=== PATIENT | female | born 1980 | race Caucasian/White ===

== ENCOUNTER 2018-12-10 02:30 | Inpatient (IN) | payer OTHER ==
[~2018-12-10] VITALS: Ht 152.4 cm; Wt 62.4 kg
[2018-12-10] VITALS (12 sets, daily range): BP systolic 101–115; BP diastolic 57–70; PULSE 83–108; RESP 18–22; Ht 152.4 cm; Wt 62.4 kg
[2018-12-10] MEDS ORDERED: ALBUTEROL/IPRATROPIUM (NEB) 3 ML AMP HHN PRN (04:00)
[2018-12-10] MEDS ORDERED: NACL 0.9% 3 ML SYG IV SCH (04:00)
[2018-12-10] MEDS ORDERED: HYDROCODONE/APAP (5/325) TAB PO PRN (04:00)
[2018-12-10] MEDS: HYDROCODONE/APAP (5/325) TAB PO PRN (04:10)
[2018-12-10] MEDS: SOD CHLORIDE 0.9% 1,000 ML IV SCH ×3 (04:10→23:47)
[2018-12-10] MEDS: morphine 4 MG/ML VIAL IV PRN ×4 (05:21→21:53)
[2018-12-10] MEDS: CEFTRIAXONE 1 GM/50 ML (PMX) 50 ML IVPB SCH ×2 (05:41→16:47)
--- NOTE | 2018-12-10 07:19 | HP ---
Date/Time of Note Date/Time of Note DATE: 12/10/18 TIME: 07:13 Assessment/Plan VTE Prophylaxis Pharmacological prophylaxis: heparin Lines/Catheters IV Catheter Type (from Nrs): Saline Lock Urinary Cath still in place: No Assessment/Plan Assessment/Plan 1. Syncope: Most likely secondary to orthostatic hypotension -Patient may have been dehydrated -will however check a 2D echo -Given reported headache, may consider head CT even though headache is likely from her migraine -Check troponin 2. Sepsis, as evidenced by fever of 102 and tachycardia at the outside facility: Influenza was negative. Chest x-ray without acute findings -UA, urine culture and blood culture -Empiric antibiotic and IV fluid 3. History of migraine headache: Pain meds as needed 4. Normocytic anemia: Check for iron deficiency -Patient benefits from outpatient pelvic/vaginal ultrasound to evaluate for fibroid Result Diagram: 12/10/18 0515 12/10/18 0515 Results 24hrs Laboratory Tests Test 12/10/18 05:15 White Blood Count 8.9 Red Blood Count 4.03 L Hemoglobin 10.9 L Hematocrit 34.6 L Mean Corpuscular Volume 85.9 Mean Corpuscular Hemoglobin 27.0 L Mean Corpuscular Hemoglobin Concent 31.5 L Red Cell Distribution Width 14.6 H Platelet Count 171 Mean Platelet Volume 10.4 Immature Granulocytes % 0.600 H Neutrophils % 90.2 H Lymphocytes % 6.0 L Monocytes % 3.1 Eosinophils % 0.0 Basophils % 0.1 Nucleated Red Blood Cells % 0.0 Immature Granulocytes # 0.050 H Neutrophils # 8.0 H Lymphocytes # 0.5 L Monocytes # 0.3 Eosinophils # 0.0 Basophils # 0.0 Nucleated Red Blood Cells # 0.0 Sodium Level 138 Potassium Level 4.0 Chloride Level 105 Carbon Dioxide Level 21 Anion Gap 12 Blood Urea Nitrogen 6 L Creatinine 0.59 Est Glomerular Filtrat Rate mL/min > 60 Glucose Level 85 Hemoglobin A1c 5.5 Calcium Level 8.3 L Magnesium Level 1.7 Total Bilirubin 0.0 L Direct Bilirubin 0.00 Indirect Bilirubin 0.0 Aspartate Amino Transf (AST/SGOT) 18 Alanine Aminotransferase (ALT/SGPT) 19 Alkaline Phosphatase 51 Creatine Kinase 79 Creatine Kinase Index 0.3 Creatinine Kinase MB (Mass) < 0.22 Troponin I < 0.012 Total Protein 6.4 Albumin 3.5 Globulin 2.90 Albumin/Globulin Ratio 1.20 Triglycerides Level 61 Cholesterol Level 143 LDL Cholesterol, Calculated 83 HDL Cholesterol 48 Cholesterol/HDL Ratio 2.9 Thyroid Stimulating Hormone (TSH) 0.478 HPI/ROS Admit Date/Time Admit Date/Time Dec 10, 2018 at 03:04 Hx of Present Illness This is a 38-year-old female with a history of migraine headache who presented on outside hospital complaining of fever, cough and flulike symptoms. She was stabilized and was about to be discharged. She was given morphine for headache. When she got out of her chair, she felt dizzy and fell. She was unconscious briefly. She felt some pain in her left cheek and right shoulder. Systolic blood pressure at that time was 53. She was given some fluid and repeat BP measurement shows a systolic blood pressure in the 60s. She was given a total of 2 L of NS and blood pressure was stabilized in the 100s. Per outside ER physician, EKG shows T wave inversion, QT prolongation and T waves. Denied chest pain or shortness of breath. Patient is accompanied by her who also provided history. Denied similar symptoms in the past. PMH/Family/Social Past Medical History Medications Current Medications Sodium Chloride 1,000 ml @ 100 mls/hr Q10H IV Last administered on 12/10/18at 04:10; Admin Dose 100 MLS/HR; Start 12/10/18 at 03:47; Stop 12/11/18 at 08:00 IV Flush (NS 3 ml) 3 ml PER PROTOCOL IV ; Start 12/10/18 at 04:00 Ondansetron HCl (Zofran Inj) 4 mg Q6H PRN IV NAUSEA/VOMITING; Start 12/10/18 at 04:00 Aspirin (Aspirin) 81 mg DAILY PO ; Start 12/10/18 at 09:00 Acetaminophen (Tylenol Tab) 650 mg Q6H PRN PO .PAIN 1-3 OR TEMP; Start 12/10/18 at 04:00 Acetaminophen/ Hydrocodone Bitart ([place] (5/325)) 1 tab Q6H PRN PO .PAIN 4-6; Start 12/10/18 at 04:00 Acetaminophen/ Hydrocodone Bitart ([place] (5/325)) 2 tab Q6H PRN PO .PAIN 7-10 Last administered on 12/10/18at 04:10; Admin Dose 2 TAB; Start 12/10/18 at 04:00 Albuterol/ Ipratropium (Duoneb) 3 ml Q2H RESP THERAPY PRN HHN SHORTNESS OF BREATH; Start 12/10/18 at 04:00 Ceftriaxone Sodium 50 ml @ 100 mls/hr Q12H IVPB Last administered on 12/10/18at 05:41; Admin Dose 100 MLS/HR; Start 12/10/18 at 05:30 Azithromycin 250 ml @ 250 mls/hr DAILY IVPB ; Start 12/10/18 at 09:00 Morphine Sulfate (morphine) 3 mg Q4H PRN IV SEVERE PAIN LEVEL 7-10 Last administered on 12/10/18at 05:21; Admin Dose 3 MG; Start 12/10/18 at 05:30 Coded Allergies: No Known Allergies (Verified Allergy, Unknown, 12/10/18) Social History Smoking Status: Unknown if ever smoked Exam/Review of Systems Vital Signs Vitals Vital Signs Date Temp Pulse Resp B/P (MAP) Pulse Ox O2 O2 Flow FiO2 Time Delivery Rate 12/10/18 94 04:00 12/10/18 Nasal 2.0 03:48 Cannula 12/10/18 99.9 22 115/57 95 03:20 (76) Intake and Output 12/09/18 12/09/18 12/10/18 1515:00 23:00 07:00 IntakeIntake Total 300 ml BalanceBalance 300 ml Exam Exam Past Medical History: see hpi Past Surgical History Past Surgical Hx: other (see hpi) Family History Significant Family History: no pertinent family hx Social History Alcohol Use: other Smoking Status: Unknown if ever smoked Drug Use: other Medications Exam Eyes: PERRL ENMT: mucosa pink and moist Respiratory: normal air movement Cardiovascular: nl pulses Gastrointestinal: soft Extremities: normal pulses AILYN RUIZ MD Dec 10, 2018 07:19
[2018-12-10] MEDS: ONDANSETRON 4 MG INJ IV PRN (08:40)
[2018-12-10] MEDS: ACETAMINOPHEN 325 MG TAB PO PRN ×2 (08:43→16:48)
[2018-12-10] MEDS: ASPIRIN 81 MG TAB PO SCH (08:43)
[2018-12-10] MEDS: AZITHROMYCIN 500MG/NS (PMX) 250 ML IVPB SCH (08:53)
--- NOTE | 2018-12-10 11:06 | PN ---
Date/Time of Note Date/Time of Note DATE: 12/10/18 TIME: 11:03 Assessment/Plan VTE Prophylaxis Pharmacological prophylaxis: LMWH Lines/Catheters [facility] Saline Lock Urinary Cath still in place: No Assessment/Plan Hospital Course 1. Syncope likely secondary to orthostatic hypotension and viral syndrome Continue IV fluids Follow-up in echo 2. Sepsis, as evidenced by fever of 102 and tachycardia at the outside facility: Influenza was negative. Chest x-ray without acute findings UA is negative Empiric antibiotic and IV fluid Patient with malaise and muscle pain likely secondary to viral syndrome 3. History of migraine headache Pain meds as needed 4. Normocytic anemia: Check for iron deficiency TIBC is normal Prophylaxis: Lovenox Result Diagram: 12/10/18 0515 12/10/18 0515 Results 24hrs Laboratory Tests Test 12/10/18 05:10 12/10/18 05:15 12/10/18 09:12 Iron Level 21 L Total Iron Binding Capacity 332 Percent Iron Saturation 6 L Ferritin 29.1 White Blood Count 8.9 Red Blood Count 4.03 L Hemoglobin 10.9 L Hematocrit 34.6 L Mean Corpuscular Volume 85.9 Mean Corpuscular Hemoglobin 27.0 L Mean Corpuscular Hemoglobin Concent 31.5 L Red Cell Distribution Width 14.6 H Platelet Count 171 Mean Platelet Volume 10.4 Immature Granulocytes % 0.600 H Neutrophils % 90.2 H Lymphocytes % 6.0 L Monocytes % 3.1 Eosinophils % 0.0 Basophils % 0.1 Nucleated Red Blood Cells % 0.0 Immature Granulocytes # 0.050 H Neutrophils # 8.0 H Lymphocytes # 0.5 L Monocytes # 0.3 Eosinophils # 0.0 Basophils # 0.0 Nucleated Red Blood Cells # 0.0 Sodium Level 138 Potassium Level 4.0 Chloride Level 105 Carbon Dioxide Level 21 Anion Gap 12 Blood Urea Nitrogen 6 L Creatinine 0.59 Est Glomerular Filtrat Rate mL/min > 60 Glucose Level 85 Hemoglobin A1c 5.5 Calcium Level 8.3 L Magnesium Level 1.7 Total Bilirubin 0.0 L Direct Bilirubin 0.00 Indirect Bilirubin 0.0 Aspartate Amino Transf (AST/SGOT) 18 Alanine Aminotransferase (ALT/SGPT) 19 Alkaline Phosphatase 51 Creatine Kinase 79 Creatine Kinase Index 0.3 Creatinine Kinase MB (Mass) < 0.22 Troponin I < 0.012 Total Protein 6.4 Albumin 3.5 Globulin 2.90 Albumin/Globulin Ratio 1.20 Triglycerides Level 61 Cholesterol Level 143 LDL Cholesterol, Calculated 83 HDL Cholesterol 48 Cholesterol/HDL Ratio 2.9 Thyroid Stimulating Hormone (TSH) 0.478 Urine Color YELLOW Urine Clarity CLEAR Urine pH 5.0 Urine Specific [place] 1.020 Urine Ketones 2+ H Urine Nitrite NEGATIVE Urine Bilirubin NEGATIVE Urine Urobilinogen NEGATIVE Urine Leukocyte Esterase NEGATIVE Urine Microscopic RBC 1 Urine Microscopic WBC 2 Urine Squamous Epithelial Cells FEW Urine Bacteria FEW A Urine Mucus FEW A Urine Hemoglobin 2+ H Urine Glucose NEGATIVE Urine Total Protein NEGATIVE Subjective 24 Hr Interval Summary Musculoskeletal: bone/joint pain Exam/Review of Systems Exam Vitals Vital Signs Date Temp Pulse Resp B/P (MAP) Pulse Ox O2 O2 Flow FiO2 Time Delivery Rate 12/10/18 Nasal 2.0 08:53 Cannula 12/10/18 87 08:19 12/10/18 98.4 18 101/57 95 07:29 (72) Intake and Output 12/09/18 12/09/18 12/10/18 1414:59 22:59 06:59 IntakeIntake Total 300 ml BalanceBalance 300 ml Constitutional: alert, oriented Respiratory: clear to auscultation Cardiovascular: regular rate and rhythm Gastrointestinal: soft; No distended Musculoskeletal: nl extremities to inspection Results Results 24hrs Laboratory Tests Test 12/10/18 05:10 12/10/18 05:15 12/10/18 09:12 Iron Level 21 L Total Iron Binding Capacity 332 Percent Iron Saturation 6 L Ferritin 29.1 White Blood Count 8.9 Red Blood Count 4.03 L Hemoglobin 10.9 L Hematocrit 34.6 L Mean Corpuscular Volume 85.9 Mean Corpuscular Hemoglobin 27.0 L Mean Corpuscular Hemoglobin Concent 31.5 L Red Cell Distribution Width 14.6 H Platelet Count 171 Mean Platelet Volume 10.4 Immature Granulocytes % 0.600 H Neutrophils % 90.2 H Lymphocytes % 6.0 L Monocytes % 3.1 Eosinophils % 0.0 Basophils % 0.1 Nucleated Red Blood Cells % 0.0 Immature Granulocytes # 0.050 H Neutrophils # 8.0 H Lymphocytes # 0.5 L Monocytes # 0.3 Eosinophils # 0.0 Basophils # 0.0 Nucleated Red Blood Cells # 0.0 Sodium Level 138 Potassium Level 4.0 Chloride Level 105 Carbon Dioxide Level 21 Anion Gap 12 Blood Urea Nitrogen 6 L Creatinine 0.59 Est Glomerular Filtrat Rate mL/min > 60 Glucose Level 85 Hemoglobin A1c 5.5 Calcium Level 8.3 L Magnesium Level 1.7 Total Bilirubin 0.0 L Direct Bilirubin 0.00 Indirect Bilirubin 0.0 Aspartate Amino Transf (AST/SGOT) 18 Alanine Aminotransferase (ALT/SGPT) 19 Alkaline Phosphatase 51 Creatine Kinase 79 Creatine Kinase Index 0.3 Creatinine Kinase MB (Mass) < 0.22 Troponin I < 0.012 Total Protein 6.4 Albumin 3.5 Globulin 2.90 Albumin/Globulin Ratio 1.20 Triglycerides Level 61 Cholesterol Level 143 LDL Cholesterol, Calculated 83 HDL Cholesterol 48 Cholesterol/HDL Ratio 2.9 Thyroid Stimulating Hormone (TSH) 0.478 Urine Color YELLOW Urine Clarity CLEAR Urine pH 5.0 Urine Specific [place] 1.020 Urine Ketones 2+ H Urine Nitrite NEGATIVE Urine Bilirubin NEGATIVE Urine Urobilinogen NEGATIVE Urine Leukocyte Esterase NEGATIVE Urine Microscopic RBC 1 Urine Microscopic WBC 2 Urine Squamous Epithelial Cells FEW Urine Bacteria FEW A Urine Mucus FEW A Urine Hemoglobin 2+ H Urine Glucose NEGATIVE Urine Total Protein NEGATIVE Medications Medication Current Medications Sodium Chloride 1,000 ml @ 100 mls/hr Q10H IV Last administered on 12/10/18at 04:10; Admin Dose 100 MLS/HR; Start 12/10/18 at 03:47; Stop 12/11/18 at 08:00 IV Flush (NS 3 ml) 3 ml PER PROTOCOL IV ; Start 12/10/18 at 04:00 Ondansetron HCl (Zofran Inj) 4 mg Q6H PRN IV NAUSEA/VOMITING Last administered on 12/10/18at 08:40; Admin Dose 4 MG; Start 12/10/18 at 04:00 Aspirin (Aspirin) 81 mg DAILY PO Last administered on 12/10/18at 08:43; Admin Dos e 81 MG; Start 12/10/18 at 09:00 Acetaminophen (Tylenol Tab) 650 mg Q6H PRN PO .PAIN 1-3 OR TEMP Last administered on 12/10/18at 08:43; Admin Dose 650 MG; Start 12/10/18 at 04:00 Acetaminophen/ Hydrocodone Bitart ([place] (5/325)) 1 tab Q6H PRN PO .PAIN 4-6; Start 12/10/18 at 04:00 Acetaminophen/ Hydrocodone Bitart ([place] (5/325)) 2 tab Q6H PRN PO .PAIN 7-10 Last administered on 12/10/18 04:10; Admin Dose 2 TAB; Start 12/10/18 at 04:00 Albuterol/ Ipratropium (Duoneb) 3 ml Q2H RESP THERAPY PRN HHN SHORTNESS OF BREATH; Start 12/10/18 at 04:00 Ceftriaxone Sodium 50 ml @ 100 mls/hr Q12H IVPB Last administered on 12/10/18 05:41; Admin Dose 100 MLS/HR; Start 12/10/18 at 05:30 Azithromycin 250 ml @ 250 mls/hr DAILY IVPB Last administered on 12/10/18 08:53; Admin Dose 250 MLS/HR; Start 12/10/18 at 09:00 Morphine Sulfate (morphine) 3 mg Q4H PRN IV SEVERE PAIN LEVEL 7-10 Last administered on 12/10/18 09:44; Admin Dose 3 MG; Start 12/10/18 at 05:30 GREY WHITE Dec 10, 2018 11:06
[2018-12-10] MEDS: ENOXAPARIN 40 MG/0.4 ML SYG SC SCH (12:34)
--- NOTE | 2018-12-10 15:30 | RADRPT ---
Echocardiogram Report Patient Name: Rupesh BARROSnt ID: [id number] : 1980 (38y 5m)Study Date: 12/10/2018 11:04:42 AM Gender: FAccession #: [id number] Tech: [facility] Location: Ref.Physician: AILYN RUIZ Height(Cm): 152 BSA: 1.71Weight(Kg): 68.9 Quality: GoodAccount #: Procedures: Echocardiographic Report: Transthoracic echocardiogram with complete 2D, M-Mode, and doppler examination. Indications: Syncope. Measurements: 2D/M Mode Doppler Measurement Value Normal Range Measurement Value Normal Range LVIDd 2D 4.4 [ 3.8 - 5.2 ] cm AV Peak Stalin 1.5 [ 100.0 - 170.0 ] cm/se c LVIDs 2D 2.8 [ 2.2 - 3.5 ] cm AV Peak PG 9.0 [ 2.0 - 9.0 ] mmHg LVPWd 2D 0.6 [ 0.6 - 0.9 ] cm LVOT Peak Stalin 0.9 [ 70.0 - 110.0 ] cm/sec IVSd 2D 0.6 [ 0.6 - 0.9 ] cm LVOT Peak PG 3.0 [ 2.0 - 6.0 ] mmHg AoR Diam 2D 2.6 [ 2.3 - 3.1 ] cm MV E Peak Stalin 0.8 [ 60.0 - 130.0 ] cm/sec EDV 2D 89.1 [ 46.0 - 106.0 ] ml MV A Peak Stalin 0.6 [ 100.0 - 120.0 ] cm/se c ESV 2D 30.9 [ 14.0 - 42.0 ] ml MV E/A 1.3 [ 0.8 - 1.5 ] ratio EF 2D 65.3 [ 54.0 - 74.0 ] percent MV PHT 41.0 [ 20.0 - 100.0 ] msec LA Dimen 2D 3.3 [ 2.7 - 3.8 ] cm MV Decel Time 140 [ 104 - 258 ] msec MV Decel Cache 6 Lat E` Stalin 0.2 [ 10.0 - 15.0 ] cm/sec Lateral E/E` 4.7 [ 1.0 - 2.0 ] ratio Med E` Stalin 0.1 cm/sec MV E/A 1.3 [ 0.8 - 1.5 ] ratio MVA PHT 5.4 [ 2.0 - 4.0 ] cm2 PV Peak Stalin 1.0 [ 40.0 - 80.0 ] cm/sec PV Peak PG 4.0 mmHg Findings: Left Ventricle: Normal left ventricular systolic function, not all huertas imaged well. Normal left ventricular cavity size. Normal left ventricular wall thickness. Ejection fraction is visually estimated at >55 %. Tissue Doppler/Mitral Doppler indices are within normal limits. E/E'= 7. Right Ventricle: Normal right ventricular size. Normal right ventricular systolic function. Left Atrium: The left atrium is normal in size. Right Atrium: The right atrium is normal in size. Atrial Septum: Normal atrial septum. Mitral Valve: Normal appearance and function of the mitral valve with trace physiologic regurgitation. Aortic Valve: Normal appearance of the aortic valve. No significant aortic stenosis or insufficiency. Tricuspid Valve: Normal appearance and function of the tricuspid valve with trace physiologic regurgitation. Pulmonic Valve: Normal pulmonic valve appearance, from subcostal images. No evidence of pulmonic regurgitation. Pericardium: Normal pericardium with no significant pericardial effusion. Aorta: Normal aortic root. IVC: Normal size and normal respiratory collapse consistent with normal right atrial pressure. Pulmonary Artery: Normal pulmonary artery size from subcostal images. Conclusions: Normal left ventricular systolic function, not all huertas imaged well. Normal left ventricular cavity size. Normal left ventricular wall thickness. Ejection fraction is visually estimated at >55 %. Tissue Doppler/Mitral Doppler indices are within normal limits. E/E'= 7. Normal appearance and function of the mitral valve with trace physiologic regurgitation. Normal appearance and function of the tricuspid valve with trace physiologic regurgitation. Electronically Signed By: Marcelo Biggs 2018-12-10 15:30:16 PST
[2018-12-11] VITALS (12 sets, daily range): BP systolic 94–118; BP diastolic 57–70; PULSE 71–91; RESP 17–19
[2018-12-11] MEDS: SOD CHLORIDE 0.9% 1,000 ML IV SCH (02:36)
[2018-12-11] MEDS: ACETAMINOPHEN 325 MG TAB PO PRN ×2 (04:57→19:48)
[2018-12-11] MEDS: morphine 4 MG/ML VIAL IV PRN ×4 (04:58→21:33)
[2018-12-11] MEDS: CEFTRIAXONE 1 GM/50 ML (PMX) 50 ML IVPB SCH ×2 (05:06→17:01)
[2018-12-11] MEDS: AZITHROMYCIN 500MG/NS (PMX) 250 ML IVPB SCH (08:41)
[2018-12-11] MEDS: ASPIRIN 81 MG TAB PO SCH (08:41)
[2018-12-11] MEDS: ONDANSETRON 4 MG INJ IV PRN ×2 (08:59→19:51)
[2018-12-11] MEDS: ENOXAPARIN 40 MG/0.4 ML SYG SC SCH (09:21)
--- NOTE | 2018-12-11 14:15 | PDOCDIS ---
Discharge Instructions CONDITION [id number] Patient Condition: [id number] Good HOME CARE INSTRUCTIONS: [id number] Diet Instructions: [id number] Regular ACTIVITY: [id number] Activity Restrictions: [id number] No Restrictions FOLLOW UP/APPOINTMENTS Follow-up Plan FOLLOW UP WITH YOUR PCP IN 1-2 WEEKS GREY WHITE Dec 11, 2018 14:15
[2018-12-11] MEDS ORDERED: POTASSIUM PHOSPHATE 20 MEQ in SOD CHLORIDE 0.9% 250 ML IVPB ONE (14:30)
--- NOTE | 2018-12-11 17:26 | DS ---
Date/Time of Note Date/Time of Note DATE: 12/11/18 TIME: 17:22 Discharge Summary Admission/Discharge Info Admit Date/Time Dec 10, 2018 at 03:04 Discharge Date/Time December 11, 2018 Discharge Diagnosis 1. Syncope likely secondary to orthostatic hypotension and viral syndrome Status post fluids Echo with preserved EF and no abnormalities 2. Sepsis, as evidenced by fever of 102 and tachycardia at the outside facility: Influenza was negative. Chest x-ray without acute findings Sepsis now resolved UA is negative Status post antibiotic and IV fluid Patient with malaise and muscle pain likely secondary to viral syndrome Patient also with a recent diagnosis of strep throat, patient to continue recently prescribed antibiotics 3. History of migraine headache Pain meds as needed 4. Normocytic anemia TIBC is normal Patient Condition: Good Hospital Course Patient is a 38-year-old female with a history of migraine headaches who presents after a syncopal episode and orthostatic hypotension. Patient was recently diagnosed with strep throat and was prescribed antibiotics, patient was notably febrile and tachycardic with malaise and diffuse muscular pain consistent with a viral syndrome. Patient's chest x-ray and UA were negative, patient did receive empiric IV antibiotics, sepsis did resolve and patient's malaise and muscular pain did improve significantly. Patient did receive IV fluids and orthostatic hypotension did resolve, patient was stable for DC to home, on day of discharge patient's vitals, labs and physical exam are stable. Home Meds No Active Prescriptions or Reported Meds Follow-up Plan FOLLOW UP WITH YOUR PCP IN 1-2 WEEKS Primary Care Provider Care Physician No Primary Time spent on discharge: > 30 minutes GREY WHITE Dec 11, 2018 17:26
[2018-12-11] MEDS: HYDROCODONE/APAP (5/325) TAB PO PRN (22:20)
== END 2018-12-11 22:35 | disposition home or self-care (01) | DRG 872 ==
LOC: 6WM 03:04
PROVIDERS: ADMIT Internal Medicine; ATTEND Internal Medicine
DX: A41.89 Other specified sepsis (principal); I95.1 Orthostatic hypotension; D64.9 Anemia, unspecified; B34.9 Viral infection, unspecified
CPT/HCPCS: 70450; 73030; 80048; 80053; 80061; 81001; 82550; 82553; 82728; 83036; 83540; 83735; 84100; 84443; 84484; 85025; 87040; 87081; 87086; 87400; 93306; J0456; J0696; J1650; J2270; J2405; J7030; J7050